=== PATIENT | male | born 1970 | race Caucasian/White ===

== ENCOUNTER → 2020-12-21 09:56 | Outpatient (BNVA) | payer BC, SELFPAY | PROVIDERS: Family Provider Nurse Practitioner; PCP Family Medicine; Referring Provider Family Medicine; Visit Provider Orthopaedic Surgery | DX: S82.201D Unspecified fracture of shaft of right tibia, subsequent encounter for closed fracture with routine healing (principal); S82.401D Unspecified fracture of shaft of right fibula, subsequent encounter for closed fracture with routine healing; X58.XXXD Exposure to other specified factors, subsequent encounter | CPT/HCPCS: 73590 ==

== ENCOUNTER 2020-12-21 11:12 | Outpatient (CLI) | payer BC, SELFPAY | END 2020-12-21 11:13 | disposition home or self-care (01) | LOC: SPT 11:14 | PROVIDERS: Family Provider Nurse Practitioner; PCP Family Medicine; Visit Provider Orthopaedic Surgery | DX: Z46.89 Encounter for fitting and adjustment of other specified devices (principal); S82.209D Unspecified fracture of shaft of unspecified tibia, subsequent encounter for closed fracture with routine healing; S82.409D Unspecified fracture of shaft of unspecified fibula, subsequent encounter for closed fracture with routine healing; X58.XXXD Exposure to other specified factors, subsequent encounter | CPT/HCPCS: 97760; L4361 ==

== ENCOUNTER → 2021-01-10 10:53 | Outpatient (BNVA) | payer BC, SELFPAY | PROVIDERS: Family Provider Nurse Practitioner; PCP Family Medicine; Visit Provider Orthopaedic Surgery | DX: S82.201D Unspecified fracture of shaft of right tibia, subsequent encounter for closed fracture with routine healing (principal); S82.401D Unspecified fracture of shaft of right fibula, subsequent encounter for closed fracture with routine healing; Z98.890 Other specified postprocedural states; Z87.81 Personal history of (healed) traumatic fracture; X58.XXXD Exposure to other specified factors, subsequent encounter | CPT/HCPCS: 73590 ==

== ENCOUNTER → 2021-02-21 10:07 | Outpatient (BNVA) | payer BC, SELFPAY | PROVIDERS: Family Provider Nurse Practitioner; PCP Family Medicine; Visit Provider Orthopaedic Surgery | DX: Z98.890 Other specified postprocedural states (principal); S82.201D Unspecified fracture of shaft of right tibia, subsequent encounter for closed fracture with routine healing; S82.401D Unspecified fracture of shaft of right fibula, subsequent encounter for closed fracture with routine healing; X58.XXXD Exposure to other specified factors, subsequent encounter | CPT/HCPCS: 73590 ==

== ENCOUNTER → 2021-05-28 09:54 | Outpatient (BNVA) | payer BC, SELFPAY | PROVIDERS: Family Provider Nurse Practitioner; PCP Family Medicine; Visit Provider Orthopaedic Surgery | DX: S82.201A Unspecified fracture of shaft of right tibia, initial encounter for closed fracture (principal); S82.401A Unspecified fracture of shaft of right fibula, initial encounter for closed fracture; X58.XXXA Exposure to other specified factors, initial encounter; Z98.890 Other specified postprocedural states | CPT/HCPCS: 73590 ==

== ENCOUNTER 2021-06-24 13:46 | Outpatient (CLI) | payer BC, SELFPAY ==
--- NOTE | 2021-06-24 13:49 | CT_ITS ---
WS: [id number] NONCONTRAST CT RIGHT LOWER LEG TECHNIQUE: Noncontrast CT right lower leg with coronal and sagittal reformatted images. CLINICAL INFORMATION: S82.209A - Unspecified fracture of shaft of unspecified t... COMPARISON: None. DLP: 2867.[address] scans at [facility] use at least one of these dose optimization techniques: automated e xposure control; mA and/or kV adjustment per patient size (includes targeted exams where dose is matc hed to clinical indication); or iterative reconstruction. FINDINGS: Prior postoperative changes plate and screw fixation involving the mid and distal tibia with healing comminuted fracture with associated callus formation. Persistent lucent oblique fracture line distal tibial diaphysis Healing fracture involving the proximal fibula with peripheral callus formation. Small residual fract ure line nearly healed. Normal anatomic alignment. Hardware appears in good position. No evidence of hardware loosening. Mild subcutaneous edema in the lower leg soft tissues. No drainable fluid collect ions. Demineralization at the ankle mortise, tibial plafond, and talus. CT/CT lower leg RT wo con* [id number] IMPRESSION: 1. Prior postoperative changes extensive hardware in the mid and distal tibial diaphysis extending to the tibial plafond. 2. Healing spiral type fracture involving the tibial shaft with marginal callu s formation. Persistent visualized fracture line. 3. No evidence of hardware loosening. Hardware appears in good position. 4. Proximal fibular fracture nearly healed with callus formation. 5. Mild subcutaneous edema in the lower leg extending to the ankle. No drainab le fluid collections.
== END 2021-06-24 13:47 | disposition home or self-care (01) ==
PROVIDERS: PCP Family Medicine; Visit Provider Orthopaedic Surgery
DX: S82.201A Unspecified fracture of shaft of right tibia, initial encounter for closed fracture (principal); S82.401A Unspecified fracture of shaft of right fibula, initial encounter for closed fracture; X58.XXXA Exposure to other specified factors, initial encounter; R60.0 Localized edema
CPT/HCPCS: 73700